=== PATIENT | male | born 1995 | race Two or more races ===

== ENCOUNTER 2017-03-17 19:43 | Emergency (ER) | payer SELFPAY ==
[2017-03-17] MEDS ORDERED: Lidocaine 1% 30 ML SDV INJECT ONE (20:25)
[2017-03-17 20:37] VITALS: BP 102/50
--- NOTE | 2017-03-17 21:00 | EDM.PDOC ---
ED HPI GENERAL MEDICAL PROBLEM - General Chief Complaint: Laceration Stated Complaint: large laceration Time Seen by Provider: 03/17/17 19:45 Source of Information: Reports: Patient History Limitations: Reports: No Limitations - History of Present Illness INITIAL COMMENTS - FREE TEXT/NARRATIVE: Patient reports removing bricks for a friend and some demolition. He kicked at a brick to remove it and in so doing, another brick struck the back of his ankle and cut it wide open. He is brought by several friends and they did tourniquet the leg. It is bleeding on arrival. Onset: Today Onset Date: 03/17/17 Onset Time: 20:00 Location: Reports: Lower Extremity, Right Severity: Moderate Worsens with: Reports: Movement Context: Reports: Other Associated Symptoms: Reports: No Other Symptoms Right Ankle Pain Score (Numeric/FACES): 5 - Related Data Allergies Allergy/AdvReac Type Severity Reaction Status Date / Time No Known Allergies Allergy Verified 03/17/17 19:59 Home Meds: Home Meds . [No Known Home Meds] 03/17/17 [History] ED ROS GENERAL - Review of Systems Review Of Systems: See Below Constitutional: Reports: No Symptoms HEENT: Reports: No Symptoms Respiratory: Reports: No Symptoms Cardiovascular: Reports: No Symptoms Endocrine: Reports: No Symptoms GI/Abdominal: Reports: No Symptoms : Reports: No Symptoms Musculoskeletal: Reports: Leg Pain, Foot Pain (right ankle/foot) Skin: Reports: Wound Neurological: Reports: No Symptoms Psychiatric: Reports: No Symptoms Hematologic/Lymphatic: Reports: No Symptoms Immunologic: Reports: No Symptoms ED EXAM, SKIN/RASH Exam: See Below Exam Limited By: No Limitations General Appearance: Alert, WD/WN, Mild Distress Eye Exam: Bilateral Eye: EOMI, PERRL Neck: Normal Inspection Respiratory/Chest: No Respiratory Distress, Lungs Clear, Normal Breath Sounds Cardiovascular: Normal Peripheral Pulses, Regular Rate, Rhythm, No Edema Peripheral Pulses: 2+: Posterior Tibial (L), Posterior Tibial (R), Dorsalis Pedis (L), Dorsalis Pedis (R) GI/Abdominal: Normal Bowel Sounds, Soft Extremities: Other (right achilles is seen and it is completely severed) Neurological: Alert, Oriented Skin: Wound/Incision (24 cm wound semicircular in shape. Ruptured right achilles seen as well as foreign bodies consisting of brick) Location, Skin: Lower Extremity, Right ED SKIN PROCEDURES - Laceration/Wound Repair Right Lower Posterior Medial Distal Ankle Lac/wound length in cm: 24 (semicircular in shape, achilles area) Appearance: linear, mildly contaminated Distal NVT: neuro & vascular intact, other (complete rupture of the right achilles is visualized) Anesthetic Type: local Local anesthesia - Lidocaine (Xylocaine): 2% with epi Local anesthetic volume: other (15 ml total) Skin prep: chlorhexidine (hibiciens) Exploration/Debridement/Repair: wound explored, explored to base, minimal debridement, foreign material removed Closed with: sutures Suture size: 4-0 # of sutures: 22 Suture type: nylon, interrupted Drain placement: No Sterile dressing applied: provider Tetanus status addressed: Yes Complications: No Progress/Comments: Wound was irrigated, foreign bodies removed, I did consult with the [facility] apartment leasing consultant orthopedic provider who did advise me to close the wound and have the patient call tomorrow for follow up and surgery. He also recommended a posterior splint to be applied with the foot plantar flexed which we did. He was also provided crutches. Tetanus was given Course - Vital Signs Last Recorded V/S: Last Vital Signs Temp 36.6 C 03/17/17 19:45 Pulse 61 03/17/17 20:30 Resp 20 03/17/17 19:45 BP 102/50 L 03/17/17 20:30 Pulse Ox 97 03/17/17 20:30 - Orders/Labs/Meds Orders: Active Orders 24 hr Category Date Time Status Ankle Min 3V Rt [CR] Stat Exams 03/17/17 20:06 Taken Meds: Medications Discontinued Medications Generic Name Dose Route Start Last Admin Trade Name Rosi PRN Reason Stop Dose Admin Lidocaine HCl 30 ml 03/17/17 20:25 03/17/17 20:30 Xylocaine-Mpf 1% INJECT 03/17/17 20:26 30 ml ONETIME ONE Administration Lidocaine/Epinephrine 20 ml 03/17/17 21:20 03/17/17 21:24 Xylocaine 2% With Epinephrine 1:100,000 INJECT 03/17/17 21:21 20 ml ONETIME ONE Administration - Re-Assessments/Exams Free Text/Narrative Re-Assessment/Exam: 03/17/17 21:02 I did review the xray with Dr. Watkins, as well as Dr. Sun the ortho oncall with [facility]. Yrn's achilles is fully ruptured. Dr. uSn instructed me to close the wound after cleaning it, put him in a posterior splint with plantar flexion and crutches with follow up in 1-2 days in [place] at the orthopedic walk in clinic. Departure - Departure Time of Disposition: 23:13 Disposition: Home, Self-Care 01 Condition: good Clinical Impression: Achilles rupture, right, Removal of foreign body, Laceration - Discharge Information Instructions: Laceration Care, Adult, [id number], Stitches, Bob, or Adhesive Wound Closure, [id number], Complete Achilles Tendon Rupture Forms: ED Department Discharge Additional Instructions: Please call [facility] in [place] tomorrow to schedule an appointment with Dr. Sun within the next couple of days. Let them know that he was the doctor that helped with your case Friday evening and recommended for you to see him this week. You do have an achilles rupture that is complete which does need repair I did remove 15 pieces of concrete brick from your wound, it was fairly dirty and while I did not observe additional foreign bodies, that is always a possibility Take your antibiotic and pain medication as directed Keep your cast clean and dry. Elevate your leg, do not bear weight on it. You may bathe, but you will need to leave your leg elevated and out of the bath. You probably will not be able to shower. Please call with any quetions or concerns, or with signs of infection that I have provided you including temp over 101.5F, yellow/green oozing out of the site, increased redness, heat, pain to the site area - Problem List & Annotations (1) Achilles rupture, right SNOMED Code(s): 86032525062562519 Code(s): S86.011A - STRAIN OF RIGHT ACHILLES TENDON, INITIAL ENCOUNTER Status: Acute Priority: Low Current Visit: Yes Qualifiers: Encounter type: initial encounter Qualified Code(s): S86.011A - Strain of right Achilles tendon, initial encounter (2) Laceration SNOMED Code(s): 054793609 Code(s): DSV5043 - Status: Acute Priority: Low Current Visit: Yes (3) Removal of foreign body SNOMED Code(s): 54659099 - Removal of foreign body Status: Acute Priority: Low Current Visit: Yes - Problem List Review Problem List Initiated/Reviewed/Updated: Yes - My Orders Last 24 Hours: My Active Orders 03/17/17 20:06 Ankle Min 3V Rt [CR] Stat - Assessment/Plan Last 24 Hours: My Active Orders 03/17/17 20:06 Ankle Min 3V Rt [CR] Stat Assessment:: right achilles tendon rupture right ankle laceration foreign body removal 15 Plan: Please call [facility] in [place] tomorrow to schedule an appointment with Dr. Sun within the next couple of days. Let them know that he was the doctor that helped with your case Friday and recommended for you to see him this week. You do have an achilles rupture that is complete which does need repair I did remove 15 pieces of concrete brick from your wound, it was fairly dirty and while I did not observe additional foreign bodies, that is always a possibility Take your antibiotic and pain medication as directed Keep your cast clean and dry. Elevate your leg, do not bear weight on it. You may bathe, but you will need to leave your leg elevated and out of the bath. You probably will not be able to shower. Please call with any quetions or concerns, or with signs of infection that I have provided you including temp over 101.5F, yellow/green oozing out of the site, increased redness, heat, pain to the site area
[2017-03-17] MEDS ORDERED: Lidocaine 2% with EPINEPHrine 1:100,000 20 ML MDV INJECT ONE (21:20)
[2017-03-17] MEDS ORDERED: cefTRIAXone 1 GM Vial IM ONE (22:49)
[2017-03-17] MEDS ORDERED: Take Home: Acetaminophen/HYDROcodone 325-5 MG, 5 Tab Pack PO ONE (22:50)
[2017-03-17] MEDS ORDERED: Lidocaine 1% 2 ML ONE (22:59)
[2017-03-17] MEDS ORDERED: Diphtheria,Pertussis(Acell),Tetanus Vaccine 0.5 ML Syringe IM ONE (23:01)
== END 2017-03-17 23:15 | disposition home or self-care (01) ==
LOC: VM.ED 19:43
DX: S81.821A Laceration with foreign body, right lower leg, initial encounter (principal); S86.021A Laceration of right Achilles tendon, initial encounter; S86.011A Strain of right Achilles tendon, initial encounter; W22.8XXA Striking against or struck by other objects, initial encounter
CPT/HCPCS: 12006; 12036; 73610; 90471; 90715; 96372; 99283; A9270; J0696